=== PATIENT | female | born 1965 ===

== ENCOUNTER 2018-11-28 20:06 | Emergency (ER) | payer MEDICAID ==
[2018-11-28 20:06] VITALS: BMI 31.2
[2018-11-28 20:33] VITALS: BP 148/79; PULSE 67; RESP 18; TEMP 97.9; O2SAT 100
--- NOTE | 2018-11-28 21:18 | ED PDOC ---
Upper Extremity Pain/Injury Time Seen by Provider: 11/28/18 20:43 Chief Complaint (Nursing): Upper Extremity Problem/Injury Chief Complaint (Provider): Right Elbow Pain History Per: Patient History/Exam Limitations: no limitations Onset/Duration Of Symptoms: Other (one month) Current Symptoms Are (Timing): Still Present Quality: "Pain" Exacerbating Factor(s): Movement Additional Complaint(s): 53 year old female presents to the ED for an evaluation of right-sided elbow pain onset for one month. Patient denies any injury or trauma. She reports there is no pain when she is at rest. The pain occurs with palpation and certain movements. She reports she works with her hands. Past Medical History Reviewed: Historical Data, Nursing Documentation, Vital Signs Vital Signs: Last Vital Signs Temp 97.9 F 11/28/18 20:29 Pulse 67 11/28/18 20:29 Resp 18 11/28/18 20:29 BP 148/79 11/28/18 20:29 Pulse Ox 100 11/28/18 20:29 - Medical History PMH: HTN, Hypercholesterolemia Denies: Chronic Kidney Disease - Family History Family History: States: Unknown Family Hx - Immunization History Hx Tetanus Toxoid Vaccination: No Hx Influenza Vaccination: No Hx Pneumococcal Vaccination: No - Home Medications Home Medications: Ambulatory Orders Medication Instructions Recorded Aspirin [Aspirin Chewable] 1 tab PO DAILY 11/21/16 Atorvastatin Calcium 1 tab PO DAILY 11/21/16 Bisacodyl [Dulcolax] 1 tab PO PRN PRN 11/21/16 Losartan [Cozaar] 1 tab PO DAILY 11/21/16 Naproxen [Naprosyn Tab] 1 tab PO TID 11/21/16 Ibuprofen [Motrin Tab] 600 mg PO TID #15 tab 11/28/18 - Allergies Allergies/Adverse Reactions: Allergies Allergy/AdvReac Type Severity Reaction Status Date / Time No Known Allergies Allergy Verified 11/28/18 20:29 Review of Systems ROS Statement: Except As Marked, All Systems Reviewed And Found Negative Constitutional: Negative for: Fever Musculoskeletal: Positive for: Other (right elbow pain) Neurological: Negative for: Weakness, Numbness Physical Exam - Reviewed Nursing Documentation Reviewed: Yes Vital Signs Reviewed: Yes - Physical Exam Appears: Positive for: Well, Non-toxic, No Acute Distress Head Exam: Positive for: ATRAUMATIC Skin: Positive for: Normal Color, Warm, DRY Eye Exam: Positive for: Normal appearance, EOMI Extremity: Positive for: Normal ROM (full ROM of right elbow), Swelling (No swelling or tenderness over medial epicondyle), Other (localized tenderness over lateral right epicondyle). Negative for: Tenderness (right shoulder and wrist presents no swelling or tenderness with full ROM), Deformity Neurological/Psych: Positive for: Awake, Alert, Normal Tone, Oriented (x3) - ECG O2 Sat by Pulse Oximetry: 100 (RA) Pulse Ox Interpretation: Normal Medical Decision Making Medical Decision Making: Time: 2102 Plan: Ibuprofen 600mg Elbow right 3 views [RAD] Exam c/w lateral epicondylitis, advised rest, ice, motrin. f/u with ortho if persists. Scribe Attestation: Documented by Abiodun De La Vega acting as a scribe for Yadi Ritter PA-C. Provider Scribe Attestation: All medical record entries made by the Scribe were at my direction and personally dictated by me. I have reviewed the chart and agree that the record accurately reflects my personal performance of the history, physical exam, medical decision making, and the department course for this patient. I have also personally directed, reviewed, and agree with the discharge instructions and disposition. Disposition - Clinical Impression Clinical Impression: Epicondylitis, lateral - Patient ED Disposition Is Patient to be Admitted: No Counseled Patient/Family Regarding: Studies Performed, Diagnosis, Need For F ollowup, Rx Given - Disposition Referrals: Ramiro Hou MD [Staff Provider] - Disposition: Routine/Home Disposition Time: 22:30 Condition: STABLE Prescriptions: Ibuprofen [Motrin Tab] 600 mg PO TID #15 tab Instructions: Lateral Epicondylitis (DC), Lateral Epicondylitis Exercises Forms: [employer] ([place]) Print Language: SETSWANA
--- NOTE | 2018-11-29 10:15 | RAD ---
Date of service: 11/28/2018 PROCEDURE: Radiographs of the right elbow. HISTORY: pain COMPARISON: No prior. TECHNIQUE: 3 views obtained. FINDINGS: BONES: Normal. No fracture. JOINTS: Slight degenerative spurring of the coronoid process of the ulna. SOFT TISSUES: Normal. JOINT EFFUSION: None. OTHER FINDINGS: None. IMPRESSION: No evidence of acute fracture. Minor degenerative osteoarthritis.
== END 2018-11-28 22:20 | disposition home or self-care (01) ==
LOC: H.ER 20:06
DX: M77.11 Lateral epicondylitis, right elbow (principal)